=== PATIENT | male | born 1980 | race Caucasian/White ===

== ENCOUNTER 2021-09-21 08:07 | Outpatient (CLI) | payer OTHER | END 2021-09-21 08:40 | disposition home or self-care (01) | LOC: LAB 08:07 | PROVIDERS: ATTEND Internal Medicine Hematology & Oncology | DX: D50.8 Other iron deficiency anemias (principal); R79.9 Abnormal finding of blood chemistry, unspecified; I10 Essential (primary) hypertension; R74.02 Elevation of levels of lactic acid dehydrogenase [LDH]; K76.89 Other specified diseases of liver; E55.9 Vitamin D deficiency, unspecified; E78.2 Mixed hyperlipidemia; E03.8 Other specified hypothyroidism; R97.0 Elevated carcinoembryonic antigen [CEA]; R97.8 Other abnormal tumor markers; R97.20 Elevated prostate specific antigen [PSA]; C83.50 Lymphoblastic (diffuse) lymphoma, unspecified site ==

== ENCOUNTER → 2022-01-06 | Outpatient (CLI) | payer OTHER | END | disposition home or self-care (01) | LOC: SONOGRAMA 11:16 | PROVIDERS: ATTEND Internal Medicine Hematology & Oncology | DX: E04.2 Nontoxic multinodular goiter (principal); C83.50 Lymphoblastic (diffuse) lymphoma, unspecified site; D51.3 Other dietary vitamin B12 deficiency anemia; E03.8 Other specified hypothyroidism ==

== ENCOUNTER 2022-01-11 09:43 | Outpatient (CLI) | payer OTHER | END 2022-01-11 09:53 | disposition home or self-care (01) | LOC: LAB 09:43 | PROVIDERS: ATTEND Internal Medicine Hematology & Oncology | DX: D50.8 Other iron deficiency anemias (principal); R79.9 Abnormal finding of blood chemistry, unspecified; I10 Essential (primary) hypertension; R74.02 Elevation of levels of lactic acid dehydrogenase [LDH]; K76.89 Other specified diseases of liver; D51.8 Other vitamin B12 deficiency anemias; D51.1 Vitamin B12 deficiency anemia due to selective vitamin B12 malabsorption with proteinuria; D51.0 Vitamin B12 deficiency anemia due to intrinsic factor deficiency; E03.8 Other specified hypothyroidism; E06.3 Autoimmune thyroiditis; C73 Malignant neoplasm of thyroid gland; M32.9 Systemic lupus erythematosus, unspecified; M06.9 Rheumatoid arthritis, unspecified; C83.50 Lymphoblastic (diffuse) lymphoma, unspecified site; D51.3 Other dietary vitamin B12 deficiency anemia ==

== ENCOUNTER 2022-03-16 14:21 | Outpatient (CLI) | payer OTHER | END 2022-03-16 14:23 | disposition home or self-care (01) | LOC: SONOGRAMA 14:21 | PROVIDERS: ATTEND Pathology Anatomic Pathology & Clinical Pathology | DX: D34 Benign neoplasm of thyroid gland (principal); E04.9 Nontoxic goiter, unspecified ==

== ENCOUNTER 2024-07-15 13:19 | Outpatient (CLI) | payer OTHER | END 2024-07-15 13:38 | disposition home or self-care (01) | LOC: SONOGRAMA 13:19 | PROVIDERS: ATTEND General Practice | DX: E04.1 Nontoxic single thyroid nodule (principal) ==